=== PATIENT | male | born 1960 | race Caucasian/White ===

== ENCOUNTER 2023-01-24 09:07 | Outpatient (OUT) | payer OTHER, SELFPAY ==
--- NOTE | 2023-01-24 09:16 | XR_ITS ---
The [address] [address] Patient Name: DIANA LOVING MRN: [id number] date: 1960 Sex: M Assigned Patient Location: RAD Current Patient Location: RAD Accession/Order Number: [id number] Exam Date: 01/24/2023 09:18 Report Date: 01/24/2023 16:53 At the request of: KIM VELÁZQUEZ Procedure: XR sinus min 3V EXAMINATION: XR sinus min 3V HISTORY: Facial Pain, Swelling COMPARISON: No relevant comparison available. FINDINGS: MAXILLARY: No mucosal thickening or fluid level. ETHMOID: No mucosal thickening or fluid level. FRONTAL: No mucosal thickening or fluid level. SPHENOID: No mucosal thickening or fluid level. OTHER: Prior surgical repair with multiple plates and screws IMPRESSION: Clear paranasal sinuses Electronically authenticated by: GENIE HOUSTON Date: 01/24/2023 16:53
== END 2023-01-24 09:08 | disposition home or self-care (01) ==
PROVIDERS: PCP Family Medicine; Visit Provider Family Medicine
DX: R51.9 Headache, unspecified (principal); R22.0 Localized swelling, mass and lump, head
CPT/HCPCS: 70220